=== PATIENT | female | born 1975 | race Caucasian/White ===

== ENCOUNTER → 2018-02-26 | Outpatient (CLI) | payer BC ==
[2018-02-26 13:28] LABS: D-DIMER 0.61 mg/L FEU (0.15-0.50)
== END ==
LOC: RAD 12:18 → LAB 12:18
PROVIDERS: Family Medicine
DX: R91.1 Solitary pulmonary nodule (principal); R05 Cough; R06.02 Shortness of breath; R79.1 Abnormal coagulation profile; Z85.41 Personal history of malignant neoplasm of cervix uteri
CPT/HCPCS: Q9967